=== PATIENT | male | born 1980 | race Caucasian/White ===

== ENCOUNTER 2021-08-31 10:27 | Emergency (ER) | payer BC ==
[2021-08-31] MEDS ORDERED: Lidocaine 1% PF 5 ML VIAL ONE (10:40)
[2021-08-31] MEDS ORDERED: Boostrix 0.5 ML (Tdap) VIAL ONE (10:49)
[2021-08-31] MEDS ORDERED: Bacitracin 1 PK ONE (10:49)
== END 2021-08-31 11:27 | disposition home or self-care (01) ==
LOC: BURERS 10:27
DX: S60.457A Superficial foreign body of left little finger, initial encounter (principal); M10.9 Gout, unspecified; W22.8XXA Striking against or struck by other objects, initial encounter; Z23 Encounter for immunization; Z79.899 Other long term (current) drug therapy
CPT/HCPCS: 64450; 90471; 90715